=== PATIENT | male | born 1995 | race Two or more races ===

== ENCOUNTER 2016-10-22 14:46 | Emergency (ER) | payer OTHER ==
[2016-10-22 14:50] VITALS: BP 136/83
--- NOTE | 2016-10-22 15:05 | PHYS DOC ---
Past Medical History Past Medical History: No Pertinent History Past Surgical History: Other Additional Past Surgical Histo: left acl Alcohol Use: Occasionally Drug Use: Marijuana Adult General Chief Complaint Chief Complaint: HAND PROBLEM HPI HPI Patient is a 21 year old this is a right-handed male patient who presents to the ED with left hand contusion after punching a foundation pole today. Review of Systems Review of Systems Constitutional: Denies fever or chills [] Musculoskeletal: left hand contusion Integument: Denies rash or skin lesions [] Neurologic: Denies headache, focal weakness or sensory changes [] Endocrine: Denies polyuria or polydipsia [] Allergies Allergies Allergies Coded Allergies Type Severity Reaction Last Updated Verified No Known Drug Allergies 10/18/13 No Physical Exam Physical Exam Constitutional: Well developed, well nourished, no acute distress, non-toxic appearance. [] Skin: Warm, dry, no erythema, no rash. [] Back: No tenderness, no CVA tenderness. [] Extremities: Left hand with no obvious deformity. Tenderness on palpation of the left thumb and left index finger knuckles. Full range of motion to the left hand and fingers. Adequate radial medial and wasn't sensation to the left hand. +2 left radial pulse. Cap refill less than 2 seconds the left upper extremity. Sensation intact to the left upper extremity. Neurologic: Alert and oriented X 3, normal motor function, normal sensory function, no focal deficits noted. [] Psychologic: Affect normal, judgement normal, mood normal. [] Current Patient Data Vital Signs Vital Signs Date Time Temp Pulse Resp B/P (MAP) Pulse Ox O2 Delivery O2 Flow Rate FiO2 10/22/16 14:50 97.8 51 18 100 Room Air 97.8 EKG EKG [] Radiology/Procedures Radiology/Procedures [] Course & Med Decision Making Course & Med Decision Making Pertinent Labs and Imaging studies reviewed. (See chart for details) Patient is in the ED with left hand pain after punching a foundation pole. Left hand x-rays interpreted by radiologist are negative for any acute findings. Patient was discharged with naproxen. Instructed to ice and elevate the extremity. Follow-up with orthopedic doctor in one week if pain continues Dragon Disclaimer Dragon Disclaimer This electronic medical record was generated, in whole or in part, using a voice recognition dictation system. Departure Departure Impression: Primary Impression: Contusion of left hand Disposition: 01 HOME, SELF-CARE Condition: STABLE Referrals: ITZ WHITFIELD MD (PCP) WONG FLORES II, MD Follow-up in 1-2 weeks Patient Instructions: Contusion Additional Instructions: You were seen for left hand contusion. Ice and elevate the extremity. Take Tylenol/ Motrin for pain. Follow-up with the provided orthopedic doctor in one week if pain continues. Problem Qualifiers Primary Impression: Contusion of left hand Encounter type: initial encounter Qualified Codes: S60.222A - Contusion of left hand, initial encounter AMYFRANCESDomingoVONDA SCHOOL PRINCIPAL Oct 22, 2016 15:05
--- NOTE | 2016-10-22 15:20 | RAD ---
Left hand, 3 views, 10/22/2016: History: Punching injury No fracture or dislocation is identified. The soft tissues are unremarkable. IMPRESSION: No acute left hand abnormality is detected.
== END 2016-10-22 15:25 | disposition home or self-care (01) ==
LOC: ER 14:46
DX: S60.222A Contusion of left hand, initial encounter (principal); F12.10 Cannabis abuse, uncomplicated; W22.8XXA Striking against or struck by other objects, initial encounter; Y93.89 Activity, other specified; Y92.89 Other specified places as the place of occurrence of the external cause; Y99.8 Other external cause status
CPT/HCPCS: 73130; 99284